=== PATIENT | male | born 1955 | race Caucasian/White ===

== ENCOUNTER → 2016-10-13 | Day surgery (SDC) | payer MEDICARE, BC ==
[~2016-10-13] MED LIST: ALPRAZOLAM PO; ASPIRINEC PO; AVADART PO; AVODART0.5 MG PO; BACLOFEN20 M1 PO; CARVEDILOL6.25 MG PO; CITALOPRAM; CLONAZEPAM2 MG PO; COUMADIN4 MG PO; COUMADIN5 MG PO; CRESTOR PO; CRESTOR5 MG PO; CYMBALTA PO; FLOMAX0.4 M1 PO; FLOMAX0.4 MG PO; HIGH POTENCY B1 TAB; KCL 40 MEQ PO; KLONOPIN PO; LINZESS290 MCG PO; LORTAB 10/500 T1 TAB PO; LYRICA300 MG PO; METAXALONE800 M1 PO; METHACARBAMOL; METOPROLOL SUCC25 MG PO; MORGIDOX100 MG PO; MULTIVITAMINS1 EAC3 PO; NABUMETONE; NABUMETONE PO; NIACIN100 MG; NIACIN250 M1 PO; OMEPRAZOLE40 MG PO; OXYCONTIN PO; OXYCONTIN40 MG PO; PERCOCET7.5 PO; PRILOSEC40 MG PO; RELAFEN PO; TOPAMAX PO; TOPIRAMATE15 MG PO; TYLENOL325 MG/10. PO; VITAMIN A10000 UNIT PO; VITAMIN B 1 PO; VITAMIN B 12 PO; VITAMIN B-150 MG PO; VITAMIN B12-FO1 EACH PO; XANAX1 MG PO; XANAX2 MG PO; ZANAFLEX2 M1 PO; ZANAFLEX4 M1 PO; [UNRECOGNIZED DRUG - OTHER]; [UNRECOGNIZED DRUG - OTHER] PO
--- NOTE | ~2016-10-13 | OR ---
Unit #: [id number] #: [id number] Patient: FAITH ALONZO [id number] [address] [address] [id number] O MR#: [id number] NAME: FAITH ALONZO ROOM: Date of Procedure: 10/13/2016 Admission Date: 10/13/2016 Surgeon: Jorge Lyn M.D. : 1955 Attending Physician: Jorge Lyn M.D. Primary Care Physician: Luis Palm M.D. OPERATIVE REPORT PREOPERATIVE DIAGNOSES Lumbar spinal stenosis, degenerative disk disease, back pain, radiculopathy. POSTOPERATIVE DIAGNOSES Lumbar spinal stenosis, degenerative disk disease, back pain, radiculopathy. PROCEDURE PERFORMED Lumbar epidural steroid injection with intravenous sedation and fluoroscopic guidance for needle localization. INDICATIONS FOR PROCEDURE The patient is a 61-year-old male with worsening mid back pain. Workup demonstrated worsened pathology, severe stenosis at the L2-L3 level due to facet disease and disk disease, moderately severe stenosis at L3-L4, disk bulging from T12 through L3. Plan is for trial of epidural steroids based on history, pathology, symptomatology, and failed to settle with conservative measures. DESCRIPTION OF PROCEDURE The patient was placed in a seated position. Standard monitors were applied. 2 mg of Versed were given for sedation and anxiolysis, which were adequate. Vital signs remained stable. Sterile prep and drape then of lumbar area was performed. The skin then at the L2-L3 level was localized with 1% lidocaine. An 18-gauge Hustead needle was then advanced via loss of resistance technique and fluoroscopic guidance in toward the epidural space. After confirming proper positioning with fluoroscopy and radiographic contrast, 80 mg of Depo-Medrol and 6 mL of 0.125% bupivacaine were deposited. The patient tolerated the procedure otherwise well and was discharged to the recovery room in stable condition. Dictated by... Jorge Lyn M.D. LHP/modl TD: 10/13/2016 23:06 JOB #: [id number] Unit #: [id number] #: [id number] Patient: FAITH ALONZO OPERATIVE REPORT Page 1 of 1 X Jorge Lyn MD X PROCEDURE OPERATIVE NOTE
== END | disposition home or self-care (01) ==
LOC: CCSC 11:03
DX: M51.16 Intervertebral disc disorders with radiculopathy, lumbar region (principal); M48.06 Spinal stenosis, lumbar region
CPT/HCPCS: J1040; J2250

== ENCOUNTER → 2016-10-25 | Day surgery (SDC) | payer MEDICARE, BC ==
--- NOTE | ~2016-10-25 | OR ---
Unit #: [id number] #: [id number] Patient: FAITH ALONZO [id number] [address] [address] [id number] O MR#: [id number] NAME: FAITH ALONZO ROOM: Date of Procedure: 10/25/2016 Admission Date: 10/25/2016 Surgeon: Jorge Lyn M.D. : 1955 Attending Physician: Jorge Lyn M.D. Primary Care Physician: Luis Palm M.D. OPERATIVE REPORT JOB NOTE: CC: [facility] PREOPERATIVE DIAGNOSES Back pain, degenerative lumbar disk disease, degenerative lumbar spine disease, spinal stenosis. POSTOPERATIVE DIAGNOSES Back pain, degenerative lumbar disk disease, degenerative lumbar spine disease, spinal stenosis. PROCEDURE PERFORMED Lumbar epidural steroid injection with intravenous sedation and fluoroscopic guidance for needle localization. INDICATIONS FOR PROCEDURE The patient is a 61-year-old male with worsening back and right greater than left lower extremity pain. Workup demonstrated severe spinal stenosis due to combination of facet and disk disease at L2-L3, L1-L2, and L3-L4. There was moderate stenosis and degenerative change as well. Initial epidural steroid injection week and a half ago resulted in greater than 50% improvement in all components of the pain. Based on a good partial response, pathology, and symptomatology, we are going to proceed with a second injection today. DESCRIPTION OF PROCEDURE The patient was placed in a seated position. Standard monitors were applied. 2 mg of Versed were given for sedation and anxiolysis, which were adequate. Vital signs remained stable. Sterile prep and drape then of lumbar area was performed. The skin then at the L3-L4 level was localized with 1% lidocaine. An 18-gauge ColdSparktead needle was then advanced via loss of resistance technique and fluoroscopic guidance in toward the epidural space. After confirming proper positioning with fluoroscopy and radiographic contrast, 80 mg of Depo-Medrol and 6 mL of 0.125% bupivacaine were deposited. The patient tolerated the procedure otherwise well and was discharged to the recovery room in stable condition. Dictated by... Jorge Lyn M.D. LHP/modl Unit #: [id number] #: [id number] Patient: FAITH ALONZO TD: 10/26/2016 01:04 JOB #: [id number] OPERATIVE REPORT Page 1 of 1 X Jorge Lyn MD X PROCEDURE OPERATIVE NOTE
== END | disposition home or self-care (01) ==
LOC: CCSC 11:42
DX: M51.16 Intervertebral disc disorders with radiculopathy, lumbar region (principal); M48.06 Spinal stenosis, lumbar region; M53.86 Other specified dorsopathies, lumbar region; I10 Essential (primary) hypertension; F41.9 Anxiety disorder, unspecified; F32.9 Major depressive disorder, single episode, unspecified; K21.9 Gastro-esophageal reflux disease without esophagitis; Z88.0 Allergy status to penicillin; Z88.2 Allergy status to sulfonamides; Z88.5 Allergy status to narcotic agent; Z79.1 Long term (current) use of non-steroidal anti-inflammatories (NSAID); Z79.891 Long term (current) use of opiate analgesic; Z79.01 Long term (current) use of anticoagulants; Z79.899 Other long term (current) drug therapy
CPT/HCPCS: J1040; J2250

== ENCOUNTER → 2016-11-01 | Day surgery (SDC) | payer MEDICARE, BC ==
--- NOTE | ~2016-11-01 | OR ---
Unit #: [id number] #: [id number] Patient: FAITH ALONZO [id number] [address] [address] [id number] O MR#: [id number] NAME: FAITH ALONZO ROOM: Date of Procedure: 11/01/2016 Admission Date: 11/01/2016 Surgeon: Jorge Lyn M.D. : 1955 Attending Physician: Jorge Lyn M.D. Primary Care Physician: Luis Palm M.D. OPERATIVE REPORT PREOPERATIVE DIAGNOSES Back pain, radiculopathy, degenerative lumbar disk disease. POSTOPERATIVE DIAGNOSES Back pain, radiculopathy, degenerative lumbar disk disease. PROCEDURE PERFORMED Lumbar epidural steroid injection with intravenous sedation and fluoroscopic guidance for needle localization. INDICATIONS FOR PROCEDURE The patient is a 61-year-old male with previously mentioned diagnosis. He has severe facet disease, disk disease, and stenosis. It was treated with trial of epidural steroids. Initial injection of the L2-L3 level with most significant pathology is resulted in greater than 50% settling of his symptoms. Repeat injection was done resulted in significant improvement. We are going to proceed with a final injection today . DESCRIPTION OF PROCEDURE The patient was placed in the seated position. Standard monitors were applied. 1 mg of Versed was given for sedation and anxiolysis, which was adequate. Vital signs remained stable. Sterile prep and drape then of the lumbar area was performed. The skin then at the L2-L3 level was localized with 1% lidocaine. An 18-gauge [employer] needle was then advanced via loss of resistance technique and fluoroscopic guidance in toward the epidural space. The patient did not complain of pain or paresthesia during needle advancement. After confirming proper positioning with fluoroscopy and radiographic contrast, 80 mg of Depo-Medrol and 6 mL of 0.125% bupivacaine were deposited. The patient tolerated the procedure otherwise well and was discharged to the recovery room in stable condition. Dictated by... Kieran Chatman/tomasa TD: 11/01/2016 22:37 JOB #: [id number] Unit #: [id number] #: [id number] Patient: FAITH ALONZO OPERATIVE REPORT Page 1 of 1 X Jorge Lyn MD X PROCEDURE OPERATIVE NOTE
== END | disposition home or self-care (01) ==
LOC: CCSC 11:33
DX: M51.16 Intervertebral disc disorders with radiculopathy, lumbar region (principal)
CPT/HCPCS: J1040; J2250